=== PATIENT | female | born 1940 | race Caucasian/White ===

== ENCOUNTER 2020-07-10 15:17 | Inpatient (IN) | payer MEDICARE, OTHER ==
[~2020-07-10 15:17] MED LIST: ASPIRIN CHEWABL81 MG PO; AUGMENTIN 875-1 EACH PO; CARDIZEM CD120 MG PO; CLARITIN10 MG PO; COZAAR50 MG PO; CRESTOR5 MG PO; ELIQUIS5 MG PO; FEOSOL325 MG PO; HCTZ12.5 MG PO; HYDROCODON-ACE1 EAC2 PO; LASIX20 MG PO; NORCO 5-325 TA1 EACH PO; OMEPRAZOLE 20MG20 MG PO; PHENERGAN12.5 M1 PO; TAMIFLU 75MG CA75 MG PO
[2020-07-10 19:02] LABS: BASOPHIL 0.5 % (0-2); EOSINOPHIL 0 % (0-7); HGB 8.8 g/dl (12.5-16.0); LYMPHOCYTE 11.7 % (15-48); MCH 30.8 pg (25.0-31.0); MCHC 33.8 g/dL (32.0-36.0); MCV 90.9 fL (78.0-100.0); MONOCYTE 12.6 % (0-12); MPV 9.7 fL (6.0-9.5); NEUTROPHIL 73.8 % (41-80); NRBC 0; PLT 166 K/uL (150-400); RBC 2.86 M/uL (4.20-5.40); WBC 10.4 K/uL (4.0-10.5)
[2020-07-10 19:07] LABS: D-DIMER 0.64 ug/mLFEU (0.00-0.41); INR 1.89 (0.9-1.2); PROTHROMBIN TIME 20.6 SECONDS (11.4-13.6); PTT 44.5 SECONDS (22.2-34.7)
[2020-07-10 19:15] LABS: IRON % SATURATION 8.1 %SAT (20-50)
[2020-07-10 19:20] LABS: LACTIC ACID 1.5 mmol/L (0.4-1.9)
[2020-07-10 19:21] LABS: PRO-BNP 4878 pg/mL (<450)
[2020-07-10 19:28] LABS: ALBUMIN 2.6 g/dL (3.4-5.0); BILIRUBIN - TOTAL 0.4 mg/dL (0.2-1.0); BUN/CREAT RATIO (CALC) 14.7 RATIO; CREATININE 1.16 mg/dL (0.51-0.95); FT4 (FREE T4) 1.7 ng/dL (0.76-1.46); GLOBULIN (CALCULATION) 3.5 g/dL; POTASSIUM 4.2 mmol/L (3.5-5.1); TOTAL PROTEIN 6.1 g/dL (6.4-8.2)
[2020-07-10 19:34] LABS: BILIRUBIN NEGATIVE (NEGATIVE); BLOOD NEGATIVE Ery/uL (NEGATIVE); CLARITY HAZY (CLEAR); COLOR YELLOW (YELLOW); GLUCOSE (U) NORMAL (NORMAL); LEUKOCYTES 1+ Leu/uL (NEGATIVE); NITRITE NEGATIVE (NEGATIVE); PROTEIN NEGATIVE (NEGATIVE); SPECIFIC GRAVITY <=1.005 (1.001-1.030); UROBILINOGEN 0.2 mg/dL (0.2-1.0)
[2020-07-10 19:38] LABS: BACTERIA 1+
--- NOTE | 2020-07-10 23:04 | NUR ---
UPON ADMISSION PT STATED DUE TO HAVING COVID SHE HAS NOT BEEN ABLE TO BATHE HERSELF, PT STATES SHE HAS BECOME MORE WEAK SINCE HAVING COVID WELL AND DUE TO LIVING AT HOME HAS NEGLECTED SELF CARE.
[2020-07-10] MEDS ORDERED: PROTONIX 40MG T40 MG PO (23:12)
[2020-07-10] MEDS ORDERED: ASPIRIN EC81 MG PO (23:13)
[2020-07-10] MEDS ORDERED: CRESTOR5 MG PO (23:14)
[2020-07-10] MEDS ORDERED: CLARITIN5 MG PO (23:14)
[2020-07-10] MEDS ORDERED: 8 HOUR650 MG PO (23:15)
[2020-07-10] MEDS ORDERED: ELIQUIS5 MG PO (23:15)
[2020-07-10] MEDS ORDERED: CARTIA XT120 MG PO (23:16)
[2020-07-10] MEDS ORDERED: COZAAR50 MG PO (23:17)
[2020-07-10] MEDS ORDERED: HCTZ12.5 MG PO (23:18)
[2020-07-11 00:43] LABS: POTASSIUM 4.3 mmol/L (3.5-5.1)
--- NOTE | 2020-07-11 05:53 | NUR ---
PT REFUSED LAB DRAW THIS AM, WILL ADDRESS WITH ONCOMING NURSE TO ATTEMPT AGAIN.
[2020-07-11 07:53] LABS: BASOPHIL 0.6 % (0-2); EOSINOPHIL 0.1 % (0-7); HGB 7.3 g/dl (12.5-16.0); LYMPHOCYTE 18.9 % (15-48); MCH 30.4 pg (25.0-31.0); MCHC 33.2 g/dL (32.0-36.0); MCV 91.7 fL (78.0-100.0); MPV 9.1 fL (6.0-9.5); NEUTROPHIL 65.9 % (41-80); NRBC 0; PLT 121 K/uL (150-400); RDW 14.3 % (11.5-14.0); WBC 8.4 K/uL (4.0-10.5)
[2020-07-11 08:20] LABS: ALBUMIN 2.1 g/dL (3.4-5.0); BILIRUBIN - TOTAL 0.7 mg/dL (0.2-1.0); BUN/CREAT RATIO (CALC) 15.8 RATIO; CREATININE 1.01 mg/dL (0.51-0.95); POTASSIUM 4.2 mmol/L (3.5-5.1); TOTAL PROTEIN 5.1 g/dL (6.4-8.2)
[2020-07-12 05:51] LABS: BASOPHIL 0.7 % (0-2); EOSINOPHIL 3.1 % (0-7); HCT 27.3 % (37.0-47.0); HGB 9.1 g/dl (12.5-16.0); MCHC 33.3 g/dL (32.0-36.0); MCV 90.1 fL (78.0-100.0); MONOCYTE 15.4 % (0-12); NEUTROPHIL 54.4 % (41-80); NRBC 0; PLT 122 K/uL (150-400); RBC 3.03 M/uL (4.20-5.40); RDW 14.3 % (11.5-14.0); WBC 6.9 K/uL (4.0-10.5)
[2020-07-12 06:15] LABS: BUN/CREAT RATIO (CALC) 13.6 RATIO; CREATININE 1.03 mg/dL (0.51-0.95); POTASSIUM 5.3 mmol/L (3.5-5.1)
--- NOTE | 2020-07-12 14:00 | NUR ---
PT. IS CURRENT WITH [facility]. SHE HAS A /. PLEASE NOTIFY [facility] IF PT. DC OVER WEEKEND.
[2020-07-13 04:35] LABS: BASOPHIL 0.7 % (0-2); EOSINOPHIL 4.5 % (0-7); HCT 27.2 % (37.0-47.0); HGB 9.1 g/dl (12.5-16.0); LYMPHOCYTE 23.5 % (15-48); MCH 30.1 pg (25.0-31.0); MCHC 33.5 g/dL (32.0-36.0); MCV 90.1 fL (78.0-100.0); MONOCYTE 15.5 % (0-12); MPV 9.5 fL (6.0-9.5); NEUTROPHIL 55.5 % (41-80); NRBC 0; PLT 122 K/uL (150-400); RBC 3.02 M/uL (4.20-5.40); RDW 14.3 % (11.5-14.0); WBC 6.7 K/uL (4.0-10.5)
[2020-07-13 04:57] LABS: BUN/CREAT RATIO (CALC) 13.7 RATIO; CREATININE 1.24 mg/dL (0.51-0.95); POTASSIUM 4.8 mmol/L (3.5-5.1)
[2020-07-13] MEDS ORDERED: TESSALON PERLE100 M1 PO (11:02)
[2020-07-13] MEDS ORDERED: ROBITUSSIN DM10 ML PO (11:02)
== END 2020-07-13 10:47 | disposition home health service (06) | DRG 378 ==
LOC: FER 15:17 → FMS 21:30
PROVIDERS: Allergy & Immunology Allergy; Emergency Medicine; Nurse Practitioner; ADMIT Internal Medicine
PROC: 0DB68ZX Excision of Stomach, Via Natural or Artificial Opening Endoscopic, Diagnostic (ICD-10-PCS; principal; 2020-07-11)
PROC: 30233N1 Transfusion of Nonautologous Red Blood Cells into Peripheral Vein, Percutaneous Approach (ICD-10-PCS; 2020-07-11)
DX: K29.61 Other gastritis with bleeding (principal); N39.0 Urinary tract infection, site not specified; E87.1 Hypo-osmolality and hyponatremia; K44.9 Diaphragmatic hernia without obstruction or gangrene; Z20.822 Contact with and (suspected) exposure to COVID-19; D50.9 Iron deficiency anemia, unspecified; M54.5 Low back pain; I10 Essential (primary) hypertension; Z66 Do not resuscitate; E78.5 Hyperlipidemia, unspecified; G47.00 Insomnia, unspecified; K21.9 Gastro-esophageal reflux disease without esophagitis; I35.0 Nonrheumatic aortic (valve) stenosis; E04.9 Nontoxic goiter, unspecified; E55.9 Vitamin D deficiency, unspecified; I48.91 Unspecified atrial fibrillation; Z86.16 Personal history of COVID-19; Z90.49 Acquired absence of other specified parts of digestive tract; Z95.0 Presence of cardiac pacemaker; Z95.4 Presence of other heart-valve replacement; Z98.1 Arthrodesis status; Z88.5 Allergy status to narcotic agent; Z88.8 Allergy status to other drugs, medicaments and biological substances; Z79.01 Long term (current) use of anticoagulants; Z79.82 Long term (current) use of aspirin; Z79.899 Other long term (current) drug therapy
CPT/HCPCS: 36415; 36430; 71250; 80048; 80053; 81001; 82728; 83540; 83550; 83605; 83880; 84145; 84439; 84443; 84484; 85025; 85379; 85610; 85730; 86850; 86900; 86901; 86922; 88305; 93005; 97116; 97162; 97165; 97535; C9113; G0378; J1940; J1956; J2270; J2405; J2704; J2916; J7030; J7120; P9016; U0002

== ENCOUNTER → 2020-07-26 | Day surgery (SDC) | payer MEDICARE, OTHER ==
[~2020-07-26] MED LIST changes: +8 HOUR650 MG PO; +ASPIRIN EC81 MG PO; +CARTIA XT120 MG PO; +CLARITIN5 MG PO; +IMODIUM2 MG PO; +MICONAZORB AF71 GM TOP; +PROTONIX 40MG T40 MG PO; +ROBITUSSIN DM10 ML PO; +TESSALON PERLE100 M1 PO
== END | disposition home or self-care (01) ==
LOC: FAS 06:33
DX: K63.5 Polyp of colon (principal); K57.30 Diverticulosis of large intestine without perforation or abscess without bleeding; D64.9 Anemia, unspecified; K21.9 Gastro-esophageal reflux disease without esophagitis; K22.70 Barrett's esophagus without dysplasia; M19.90 Unspecified osteoarthritis, unspecified site; I48.91 Unspecified atrial fibrillation; I10 Essential (primary) hypertension; I05.8 Other rheumatic mitral valve diseases; K29.50 Unspecified chronic gastritis without bleeding; I25.10 Atherosclerotic heart disease of native coronary artery without angina pectoris; I27.21 Secondary pulmonary arterial hypertension; Z95.2 Presence of prosthetic heart valve; Z88.5 Allergy status to narcotic agent; Z79.01 Long term (current) use of anticoagulants; Z79.899 Other long term (current) drug therapy; Z87.19 Personal history of other diseases of the digestive system; Z90.49 Acquired absence of other specified parts of digestive tract; Z98.890 Other specified postprocedural states; Z87.891 Personal history of nicotine dependence; Z88.8 Allergy status to other drugs, medicaments and biological substances; Z86.16 Personal history of COVID-19
CPT/HCPCS: 88305; J2704; J7120

== ENCOUNTER 2020-09-16 22:21 | Inpatient (IN) | payer MEDICARE, OTHER ==
[~2020-09-16] VITALS: Ht 154.9 cm; Wt 85.0 kg
[~2020-09-16 22:21] MED LIST changes: -IMODIUM2 MG PO; -MICONAZORB AF71 GM TOP
[2020-09-16 22:43] LABS: BASOPHIL 0.3 % (0-2); EOSINOPHIL 0 % (0-7); HGB 11.2 g/dl (12.5-16.0); LYMPHOCYTE 2.7 % (15-48); MCH 31.6 pg (25.0-31.0); MCHC 33.9 g/dL (32.0-36.0); MCV 93.2 fL (78.0-100.0); MONOCYTE 5.3 % (0-12); MPV 9.8 fL (6.0-9.5); NEUTROPHIL 90.3 % (41-80); NRBC 0; PLT 75 K/uL (150-400); RBC 3.54 M/uL (4.20-5.40); RDW 15.2 % (11.5-14.0)
[2020-09-16 22:51] LABS: BILIRUBIN NEGATIVE (NEGATIVE); BLOOD NEGATIVE Ery/uL (NEGATIVE); CLARITY CLEAR (CLEAR); COLOR YELLOW (YELLOW); GLUCOSE (U) NORMAL (NORMAL); LEUKOCYTES NEGATIVE Leu/uL (NEGATIVE); NITRITE NEGATIVE (NEGATIVE); PROTEIN 2+ mg/dL (NEGATIVE); SPECIFIC GRAVITY 1.015 (1.001-1.030); UROBILINOGEN 0.2 mg/dL (0.2-1.0)
[2020-09-16 22:58] LABS: AMORPHOUS URATES CRYSTALS TRACE; SQUAMOUS EPITHELIAL CELLS RARE
[2020-09-16 23:01] LABS: WBC 31.7 K/uL (4.0-10.5)
[2020-09-16 23:25] LABS: INR 1.44 (0.9-1.2); PROTHROMBIN TIME 16.7 SECONDS (11.4-13.6); PTT 43.3 SECONDS (22.2-34.7)
[2020-09-16 23:35] LABS: BUN/CREAT RATIO (CALC) 8.2 RATIO; CREATININE 1.84 mg/dL (0.51-0.95); POTASSIUM 3.4 mmol/L (3.5-5.1)
[2020-09-16 23:36] LABS: ALBUMIN 2.5 g/dL (3.4-5.0); BILIRUBIN - DIRECT 0.3 mg/dL (0.00-0.20); BILIRUBIN - TOTAL 0.6 mg/dL (0.2-1.0); C-REACTIVE PROTEIN 7.8 mg/dL (<=0.90); GLOBULIN (CALCULATION) 3.5 g/dL
[2020-09-16 23:44] LABS: LACTIC ACID 3.8 mmol/L (0.4-1.9)
[2020-09-17] MEDS ORDERED: COZAAR50 MG PO (04:02)
[2020-09-17] MEDS ORDERED: HCTZ12.5 MG PO (04:04)
[2020-09-17 05:39] LABS: BASOPHIL 0.3 % (0-2); EOSINOPHIL 0 % (0-7); HCT 27.5 % (37.0-47.0); HGB 9.2 g/dl (12.5-16.0); MCH 32.2 pg (25.0-31.0); MCHC 33.5 g/dL (32.0-36.0); MCV 96.2 fL (78.0-100.0); MONOCYTE 4.8 % (0-12); MPV 10.1 fL (6.0-9.5); NEUTROPHIL 88.6 % (41-80); NRBC 0; PLT 55 K/uL (150-400); RBC 2.86 M/uL (4.20-5.40); RDW 15.6 % (11.5-14.0)
[2020-09-17 05:43] LABS: WBC 35.1 K/uL (4.0-10.5)
[2020-09-17 05:57] LABS: BUN/CREAT RATIO (CALC) 11.1 RATIO; CREATININE 1.53 mg/dL (0.51-0.95); POTASSIUM 3.6 mmol/L (3.5-5.1)
--- NOTE | 2020-09-17 16:13 | NUR ---
09/17/20 Ms. Augustin was displaying mild confusion when an assessment was attempted. Her sister, Kalyn Dutta, [phone], was contacted with Ms. Ms. Augustin' permission. - Ms. Augustin lives alone. She was a toilet seat, rw, and s. chair. She has been weak since being dx of COVID 06/20/20. [facility] recently discharged MS. Augustin. According to Tra, Ms. Augustin had again starting to drive to the grocery prior to admission. - Will continue to follow for discharge planning needs.
[2020-09-17 18:21] LABS: BILIRUBIN NEGATIVE (NEGATIVE); BLOOD NEGATIVE Ery/uL (NEGATIVE); CLARITY CLEAR (CLEAR); COLOR YELLOW (YELLOW); GLUCOSE (U) NORMAL (NORMAL); LEUKOCYTES NEGATIVE Leu/uL (NEGATIVE); NITRITE NEGATIVE (NEGATIVE); PROTEIN TRACE (LOW) mg/dL (NEGATIVE); UROBILINOGEN 0.2 mg/dL (0.2-1.0)
[2020-09-18 04:36] LABS: BASOPHIL 0.4 % (0-2); EOSINOPHIL 0 % (0-7); HCT 23.7 % (37.0-47.0); HGB 7.9 g/dl (12.5-16.0); LYMPHOCYTE 7.3 % (15-48); MCH 31.9 pg (25.0-31.0); MCHC 33.3 g/dL (32.0-36.0); MCV 95.6 fL (78.0-100.0); MONOCYTE 3.1 % (0-12); MPV 10.5 fL (6.0-9.5); NEUTROPHIL 88.1 % (41-80); NRBC 0; PLT 58 K/uL (150-400); RBC 2.48 M/uL (4.20-5.40); RDW 16.1 % (11.5-14.0)
[2020-09-18 05:01] LABS: ALBUMIN 1.7 g/dL (3.4-5.0); BILIRUBIN - TOTAL 0.5 mg/dL (0.2-1.0); BUN/CREAT RATIO (CALC) 14.4 RATIO; CREATININE 1.32 mg/dL (0.51-0.95); GLOBULIN (CALCULATION) 2.8 g/dL; MAGNESIUM 1.4 mg/dL (1.8-2.4); POTASSIUM 3.8 mmol/L (3.5-5.1); TOTAL PROTEIN 4.5 g/dL (6.4-8.2)
[2020-09-19 07:31] LABS: BASOPHIL 0.5 % (0-2); CREATININE 1.13 mg/dL (0.51-0.95); EOSINOPHIL 0.4 % (0-7); HCT 22.8 % (37.0-47.0); HGB 7.6 g/dl (12.5-16.0); LYMPHOCYTE 12.8 % (15-48); MCH 31.9 pg (25.0-31.0); MCHC 33.3 g/dL (32.0-36.0); MCV 95.8 fL (78.0-100.0); MONOCYTE 3.9 % (0-12); MPV 10.1 fL (6.0-9.5); NEUTROPHIL 81.6 % (41-80); NRBC 0; RBC 2.38 M/uL (4.20-5.40); RDW 16.3 % (11.5-14.0); WBC 12.2 K/uL (4.0-10.5)
[2020-09-19 07:56] LABS: PLT 47 K/uL (150-400)
[2020-09-20 06:18] LABS: BASOPHIL 0.7 % (0-2); EOSINOPHIL 0.8 % (0-7); HCT 25.3 % (37.0-47.0); HGB 8.4 g/dl (12.5-16.0); LYMPHOCYTE 21.3 % (15-48); MCH 32.1 pg (25.0-31.0); MCHC 33.2 g/dL (32.0-36.0); MCV 96.6 fL (78.0-100.0); MONOCYTE 7.7 % (0-12); MPV 10.9 fL (6.0-9.5); NEUTROPHIL 68.6 % (41-80); NRBC 0; RBC 2.62 M/uL (4.20-5.40); RDW 16.3 % (11.5-14.0); WBC 8.7 K/uL (4.0-10.5)
[2020-09-20 06:32] LABS: ALBUMIN 3.1 g/dL (3.4-5.0); BILIRUBIN - TOTAL 0.8 mg/dL (0.2-1.0); BUN/CREAT RATIO (CALC) 13.5 RATIO; CREATININE 1.04 mg/dL (0.51-0.95); GLOBULIN (CALCULATION) 2.4 g/dL; MAGNESIUM 2.6 mg/dL (1.8-2.4); POTASSIUM 3.7 mmol/L (3.5-5.1); TOTAL PROTEIN 5.5 g/dL (6.4-8.2)
[2020-09-20 06:37] LABS: PLT 51 K/uL (150-400)
[2020-09-21 05:24] LABS: EOSINOPHIL 3.5 % (0-7); HCT 25.9 % (37.0-47.0); HGB 8.7 g/dl (12.5-16.0); LYMPHOCYTE 20.3 % (15-48); MCH 31.6 pg (25.0-31.0); MCHC 33.6 g/dL (32.0-36.0); MCV 94.2 fL (78.0-100.0); MONOCYTE 10.5 % (0-12); MPV 10.7 fL (6.0-9.5); NEUTROPHIL 63.7 % (41-80); NRBC 0; RBC 2.75 M/uL (4.20-5.40); RDW 15.9 % (11.5-14.0); WBC 7.7 K/uL (4.0-10.5)
[2020-09-21 05:25] LABS: PLT 52 K/uL (150-400)
[2020-09-21 05:45] LABS: BUN/CREAT RATIO (CALC) 13.1 RATIO; CREATININE 0.99 mg/dL (0.51-0.95)
[2020-09-21 05:46] LABS: MAGNESIUM 1.8 mg/dL (1.8-2.4)
[2020-09-22 05:25] LABS: BASOPHIL 0.7 % (0-2); EOSINOPHIL 1.6 % (0-7); HCT 28.7 % (37.0-47.0); HGB 9.6 g/dl (12.5-16.0); LYMPHOCYTE 20.6 % (15-48); MCH 31.7 pg (25.0-31.0); MCHC 33.4 g/dL (32.0-36.0); MCV 94.7 fL (78.0-100.0); MONOCYTE 10.1 % (0-12); MPV 10.5 fL (6.0-9.5); NEUTROPHIL 66.3 % (41-80); NRBC 0; RBC 3.03 M/uL (4.20-5.40); RDW 15.9 % (11.5-14.0)
[2020-09-22 05:35] LABS: BUN/CREAT RATIO (CALC) 11.6 RATIO; CREATININE 0.86 mg/dL (0.51-0.95); WBC 13.5 K/uL (4.0-10.5)
[2020-09-22 05:36] LABS: PLT 75 K/uL (150-400)
--- NOTE | 2020-09-22 10:46 | NUR ---
1000 INFORMED THAT PATIENT IS INCREASINGLY AGITATED AND CONFUSED. PATIENT REFUSING ALL MEDICATIONS AND IV ANTIBIOTICS. WILL NOT LET NURSING STAFF TOUCH PATIENT OR MOVE PATIENT IN BED. PATIENT REFUSING TO EAT OR DRINK. SISTER LASHAWN NOTIFIED VIA TELEPHONE, SISTER TO COME SEE PATIENT THIS AFTERNOON.
--- NOTE | 2020-09-22 14:13 | NUR ---
1130 PATIENT SISTER AT BEDSIDE. PATIENT CONTINUING TO REFUSE ALL MEDICATIONS AND CARE. MD NOTIFIED AND MD AT BEDSIDE. MD EXLPAINED THE RISKS AND BENEFITS OF MEDICATIONS AND CARE AND PATIENT STILL REFUSING
--- NOTE | 2020-09-22 18:21 | NUR ---
1700 PATIENT CONTINUING TO REFUSE CARE INCLUDING VITAL SIGNS. DR DAVENPORT NOTIFIED.
--- NOTE | 2020-09-23 07:46 | NUR ---
PT REFUSES TO CHANGE BATTERY IN TELE, NOTIFIED. PT OFF MONITOR. PT ALSO REFUSES BLOOD DRAW FOR LABS. SPOKE WITH FAMILY ABOUT THIS ISSUE.
[2020-09-23 09:10] LABS: BASOPHIL 0.6 % (0-2); EOSINOPHIL 0.8 % (0-7); HGB 9.7 g/dl (12.5-16.0); LYMPHOCYTE 23.4 % (15-48); MCH 31.4 pg (25.0-31.0); MCHC 33.4 g/dL (32.0-36.0); MCV 93.9 fL (78.0-100.0); MONOCYTE 7.9 % (0-12); MPV 10.1 fL (6.0-9.5); NEUTROPHIL 65.8 % (41-80); NRBC 0; PLT 89 K/uL (150-400); RBC 3.09 M/uL (4.20-5.40); RDW 15.9 % (11.5-14.0)
[2020-09-23 09:21] LABS: BUN/CREAT RATIO (CALC) 12.3 RATIO; CREATININE 0.73 mg/dL (0.51-0.95); POTASSIUM 3.5 mmol/L (3.5-5.1)
--- NOTE | 2020-09-25 14:22 | NUR ---
09/25/20 Ms. Augustin initially declined placement for yariel. She has agreed to placement for yariel. She chose [facility]. [facility] does not have beds. Patient's sister, Kalyn Dutta, [phone], called stating they no longer interested in [facility] because Ms. Augustin would be in quarantine for 14 days and they would not be allow to visit. Man is reviewing.
[2020-09-26 06:07] LABS: BASOPHIL 0.9 % (0-2); CREATININE 1.2 mg/dL (0.51-0.95); EOSINOPHIL 2.2 % (0-7); HCT 24.2 % (37.0-47.0); HGB 8.1 g/dl (12.5-16.0); LYMPHOCYTE 28.7 % (15-48); MCHC 33.5 g/dL (32.0-36.0); MCV 95.7 fL (78.0-100.0); MONOCYTE 11.5 % (0-12); MPV 10.6 fL (6.0-9.5); NEUTROPHIL 56.3 % (41-80); NRBC 0; POTASSIUM 3.1 mmol/L (3.5-5.1); RBC 2.53 M/uL (4.20-5.40); RDW 16.7 % (11.5-14.0); WBC 7.8 K/uL (4.0-10.5)
[2020-09-26 06:24] LABS: PLT 90 K/uL (150-400)
[2020-09-27] MEDS ORDERED: MICONAZORB AF71 GM TOP (10:07)
[2020-09-27] MEDS ORDERED: IMODIUM2 MG PO (10:12)
--- NOTE | 2020-09-27 16:20 | NUR ---
09/27/20 Pateint was discharged to [facility] by family car.
== END 2020-09-27 16:45 | DRG 871 ==
LOC: FER 22:21 → FTCU 09-17 02:03 → FICU 09-17 02:03 → FTCU 09-21 16:47 → FMS 09-23 09:31
PROVIDERS: Emergency Medicine Emergency Medical Services; Internal Medicine; Nurse Practitioner; ADMIT Allergy & Immunology Allergy
PROC: 05HY33Z Insertion of Infusion Device into Upper Vein, Percutaneous Approach (ICD-10-PCS; principal; 2020-09-20)
DX: A41.9 Sepsis, unspecified organism (principal); J18.9 Pneumonia, unspecified organism; G93.41 Metabolic encephalopathy; R65.21 Severe sepsis with septic shock; I21.A1 Myocardial infarction type 2; N17.9 Acute kidney failure, unspecified; I48.20 Chronic atrial fibrillation, unspecified; K55.1 Chronic vascular disorders of intestine; N39.0 Urinary tract infection, site not specified; E87.1 Hypo-osmolality and hyponatremia; Y95 Nosocomial condition; R41.82 Altered mental status, unspecified; I12.9 Hypertensive chronic kidney disease with stage 1 through stage 4 chronic kidney disease, or unspecified chronic kidney disease; N18.9 Chronic kidney disease, unspecified; Z20.822 Contact with and (suspected) exposure to COVID-19; L30.9 Dermatitis, unspecified; B37.9 Candidiasis, unspecified; D69.6 Thrombocytopenia, unspecified; Z66 Do not resuscitate; I08.1 Rheumatic disorders of both mitral and tricuspid valves; I27.20 Pulmonary hypertension, unspecified; E83.42 Hypomagnesemia; R10.9 Unspecified abdominal pain; G89.29 Other chronic pain; M54.9 Dorsalgia, unspecified; D50.9 Iron deficiency anemia, unspecified; Z79.899 Other long term (current) drug therapy; G47.00 Insomnia, unspecified; E55.9 Vitamin D deficiency, unspecified; M19.90 Unspecified osteoarthritis, unspecified site; K21.9 Gastro-esophageal reflux disease without esophagitis; Z86.16 Personal history of COVID-19; Z95.0 Presence of cardiac pacemaker; Z82.49 Family history of ischemic heart disease and other diseases of the circulatory system; Z80.1 Family history of malignant neoplasm of trachea, bronchus and lung; Z87.891 Personal history of nicotine dependence; Z88.5 Allergy status to narcotic agent; Z88.8 Allergy status to other drugs, medicaments and biological substances; Z79.82 Long term (current) use of aspirin; Z90.49 Acquired absence of other specified parts of digestive tract
CPT/HCPCS: 36415; 36600; 70450; 71045; 71250; 72193; 80048; 80053; 80076; 80202; 81001; 81003; 82803; 83605; 83690; 83735; 83880; 84145; 84484; 85025; 85610; 85730; 86140; 87040; 87045; 87046; 87088; 87205; 87449; 93005; 94010; 94640; 94668; 97116; 97161; 97167; 97530; 97530-GP; 97535; C1751; C9113; J0610; J0692; J1170; J1335; J1630; J1642; J1650; J1940; J2185; J2405; J3010; J3370; J3475; J7030; J7050; J7120; J7121; P9046; Q9967; U0002

== ENCOUNTER 2021-05-02 14:35 | Emergency (ER) | payer MEDICARE, OTHER ==
[~2021-05-02 14:35] MED LIST changes: +IMODIUM2 MG PO; +MICONAZORB AF71 GM TOP
[2021-05-02 18:11] LABS: BASOPHIL 0.6 % (0-2); EOSINOPHIL 2.2 % (0-7); HCT 33.3 % (37.0-47.0); LYMPHOCYTE 28.4 % (15-48); MCH 30.4 pg (25.0-31.0); NEUTROPHIL 55.2 % (41-80); NRBC 0; PLT 233 K/uL (150-400); RBC 3.62 M/uL (4.20-5.40); RDW 14.5 % (11.5-14.0); WBC 8.3 K/uL (4.0-10.5)
[2021-05-02 18:17] LABS: INR 1.07 (0.9-1.2); PROTHROMBIN TIME 13.3 SECONDS (11.8-13.4)
[2021-05-02 18:27] LABS: ALBUMIN 3.2 g/dL (3.4-5.0); BILIRUBIN - TOTAL 0.4 mg/dL (0.2-1.0); BUN/CREAT RATIO (CALC) 22.2 RATIO; CREATININE 1.71 mg/dL (0.51-0.95); GLOBULIN (CALCULATION) 3.7 g/dL; POTASSIUM 4.5 mmol/L (3.5-5.1); TOTAL PROTEIN 6.9 g/dL (6.4-8.2)
[2021-05-02 18:36] LABS: LACTIC ACID 1.1 mmol/L (0.4-1.9)
[2021-05-02 19:28] LABS: BILIRUBIN NEGATIVE (NEGATIVE); BLOOD NEGATIVE Ery/uL (NEGATIVE); CLARITY CLEAR (CLEAR); COLOR YELLOW (YELLOW); GLUCOSE (U) NORMAL (NORMAL); LEUKOCYTES NEGATIVE Leu/uL (NEGATIVE); NITRITE NEGATIVE (NEGATIVE); PROTEIN NEGATIVE (NEGATIVE); SPECIFIC GRAVITY <=1.005 (1.001-1.030); UROBILINOGEN 0.2 mg/dL (0.2-1.0); pH 5.5 (5.0-9.0)
[2021-05-02 19:34] LABS: BACTERIA TRACE; SQUAMOUS EPITHELIAL CELLS RARE; URINARY WBC RARE
[2021-05-02] MEDS ORDERED: ZPAK PO (20:32)
== END 2021-05-02 20:55 | disposition home or self-care (01) ==
LOC: FER 14:35
PROVIDERS: Physician Assistant
DX: I13.0 Hypertensive heart and chronic kidney disease with heart failure and stage 1 through stage 4 chronic kidney disease, or unspecified chronic kidney disease (principal); N18.4 Chronic kidney disease, stage 4 (severe); I50.9 Heart failure, unspecified; Z95.0 Presence of cardiac pacemaker; Z88.1 Allergy status to other antibiotic agents; Z88.2 Allergy status to sulfonamides; Z79.899 Other long term (current) drug therapy; Z87.891 Personal history of nicotine dependence
CPT/HCPCS: 36415; 71045; 80053; 81001; 83605; 83880; 84484; 85025; 85610; 93005; J1940; J2405; J7040

== ENCOUNTER 2021-07-31 10:56 | Emergency (ER) | payer OTHER, MEDICARE ==
[~2021-07-31 10:56] MED LIST changes: +ZPAK PO
== END 2021-07-31 14:30 | disposition home or self-care (01) ==
LOC: FER 10:56
DX: S16.1XXA Strain of muscle, fascia and tendon at neck level, initial encounter (principal); S29.012A Strain of muscle and tendon of back wall of thorax, initial encounter; R07.89 Other chest pain; I10 Essential (primary) hypertension; Z88.0 Allergy status to penicillin; Z88.5 Allergy status to narcotic agent; Z88.7 Allergy status to serum and vaccine; Z88.8 Allergy status to other drugs, medicaments and biological substances; V89.2XXA Person injured in unspecified motor-vehicle accident, traffic, initial encounter
CPT/HCPCS: 71250; 72125; 72128; 72131; 93005; J1030